=== PATIENT | female | born 1970 | race Asian ===

== ENCOUNTER → 2022-01-09 | Day surgery (SDC) | payer BC ==
--- NOTE | 2022-01-09 16:09 | RAD REPORT ---
EXAM DESCRIPTION: US - BREAST/AXILLA, LIMITED - 01/09/2022 10:39 am CLINICAL HISTORY: R92.8 COMPARISON: Mammogram 09/27/2021, breast ultrasound 10/19/2021 FINDINGS: The patient presents for possible biopsy of a small 5 mm mass lower outer quadrant of the right breast detailed on the ultrasound of October 2021. Preliminary imaging was repeated to try to identify and confirm persistence of the ultrasound finding . Multiple small anechoic and hypoechoic masses in the lower outer right breast again identified. The mass in question from the October examination was identifiable. The mass was not hypervascular on tojaved cloud's study. The blood vessel detailed on the prior examination is seen to traverse in proximity to th e mass but not extend into the mass itself. On today's study the mass appears to be a summation of sm aller masses. The angular margin from the October study could not be reproduced. After completion of today's preliminary imaging the area of concern was not clearly different from ad jacent anechoic and hypoechoic nodules. The small size would also make biopsy difficult and creates t he possibility of false-negative findings. Recommendation would be for the patient to undergo right breast ultrasound in 6 months to re-evaluate the lower outer quadrant right breast findings for stability or change. IMPRESSION: 1. On today's imaging, the small area of concern in the right breast detailed on the October 2021 study has different characteristics. 2. Findings are not clearly suspicious on today's study. 3. Rather than distort and alter the tissue with biopsy and possibly creating a false-negative findin g, the recommendation for the patient would be to undergo right breast sonography in 6 months to herbert arnold for stability. BI-RADS category 3 probably benign six-month follow-up ResultCode: [id number]
== END ==
LOC: DS 08:00
PROVIDERS: ATTEND Obstetrics & Gynecology
DX: R92.8 Other abnormal and inconclusive findings on diagnostic imaging of breast (principal)
CPT/HCPCS: 76642